=== PATIENT | female | born 1950 | race Caucasian/White ===

== ENCOUNTER 2018-12-27 18:41 | Emergency (ER) | payer MEDICARE, OTHER ==
[~2018-12-27] VITALS: Ht 167.6 cm; Wt 65.8 kg
[2018-12-27 19:15] VITALS: BP 106/85
[2018-12-27] MEDS ORDERED: CITRATE OF MAG296 ML PO (20:03)
[2018-12-27] MEDS ORDERED: COLACE100 MG ORAL (20:03)
[2018-12-27 20:15] VITALS: BP 106/85
--- NOTE | 2018-12-27 21:37 | Emergency Room Report ---
History of Present Illness General Chief Complaint: Abdominal Pain Source: Patient, Family Member Present Illness HPI 68-year-old female presents ED for evaluation. She complaining of pain to left upper quadrant starting today. 5 out of 10, dull, worse with deep breaths. Nonradiating. Denies shortness of breath. States that she had back surgery recently at [facility]. Is currently taking tramadol for pain. Denies nausea or vomiting. Denies fevers or chills. Denies chest pain. No other aggravating relieving factors. Denies any other associated symptoms Allergies: Coded Allergies: PENICILLINS (Verified Allergy, Severe, Anaphylaxis, 12/27/18) SULFA (SULFONAMIDE ANTIBIOTICS) (Verified Allergy, Severe, Anaphylaxis, ) Patient History Past Surgical History: other - back surgery Pertinent Family History: none Social History: Denies: smoking, alcohol use, drug use Last Menstrual Period: na Now: No Immunizations: UTD Reviewed Nursing Documentation: PMH: Agreed; PSxH: Agreed Review of Systems All Other Systems: negative except mentioned in HPI Physical Exam Vital Signs Date Time Temp Pulse Resp B/P (MAP) Pulse Ox O2 Delivery O2 Flow Rate FiO2 12/27/18 18:50 98.2 100 20 99/63 96 Room Air Sp02 EP Interpretation: reviewed, normal General Appearance: no apparent distress, alert, GCS 15, non-toxic Head: normocephalic, atraumatic Eyes: bilateral eye normal inspection, bilateral eye PERRL ENT: hearing grossly normal, normal pharynx, no angioedema, normal voice Neck: full range of motion, supple/symm/no masses Respiratory: chest non-tender, lungs clear, normal breath sounds, speaking full sentences Cardiovascular #1: regular rate, rhythm, no edema Cardiovascular #2: 2+ carotid (R), 2+ carotid (L), 2+ radial (R), 2+ radial (L) , 2+ dorsalis pedis (R), 2+ dorsalis pedis (L) Gastrointestinal: normal bowel sounds, non tender, soft, non-distended, no guarding, no rebound Rectal: deferred Genitourinary: normal inspection, no CVA tenderness Musculoskeletal: back normal, gait/station normal, normal range of motion, non- tender Neurologic: alert, oriented x3, responsive, motor strength/tone normal, sensory intact, speech normal Psychiatric: judgement/insight normal, memory normal, mood/affect normal, no suicidal/homicidal ideation Reflexes: 3+ bicep (R), 3+ bicep (L), 3+ tricep (R), 3+ tricep (L), 3+ knee (R) , 3+ knee (L) Skin: normal color, no rash, warm/dry, well hydrated Lymphatic: no adenopathy Medical Decision Making Diagnostic Impression: Primary Impression: Constipation Qualified Codes: K59.00 - Constipation, unspecified ER Course Hospital Course 68-year-old F presents to ED with LUQ abdominal pain Differential diagnosis includes-appendicitis, cholecystitis, small bowel obstruction, gastritis, Clinical course Patient placed on stretcher. After initial history, exam reveals a middle-aged female in no acute distress. On exam abdomen is soft. No guarding or rebound. There is no rib tenderness. Lungs clear. is worried about patient's heart. I ordered EKG chest x-ray and KUB EKGnormal sinus rhythm no acute ischemic changes interpreted by me Chest x-ray unremarkable KUB - copious stool noted Discussed findings with patient and . Possible that patient's pain medications is causing some fecal impaction. Exam unremarkable. I believe patient can be safely discharged home at this time. We'll prescribe stool softeners. Patient states she will follow-up with her PMD and surgeon I feel this is a highly complex case requiring extensive working including EKG/ Rhythm strip, Xray/CT/US, Blood/urine lab work, repeat exams while in ED, and administration of strong opiates/narcotics for pain control, admission to hospital or close patient follow up. Diagnosis - constipation Stable and discharged to home with Rx Mag citrate, Colace. instructed on high- fiber diet. Followup with PMD. Return to ED if symptoms recur or worsen Chest X-Ray Diagnostic Results Chest X-Ray Diagnostic Results : Chest X-Ray Ordered: Yes # of Views/Limited/Complete: 1 View Indication: Chest Pain EP Interpretation: Yes Interpretation: no consolidation, no effusion, no pneumothorax, no acute cardiopulmonary disease Impression: No acute disease Electronically Signed by: Electronically signed by David Melendez MD Other X-Ray Diagnostic Results Other X-Ray Diagnostic Results : X-Ray ordered: KUB # of Views/Limited Vs Complete: 1 View Indication: Pain EP Interpretation: Yes Interpretation: nonspecific bowel gas, no sbo, other - fecal impaction noted Impression: Other - constipated Electronically Signed by: Electronically signed by David Melendez MD Last Vital Signs Date Time Temp Pulse Resp B/P (MAP) Pulse Ox O2 Delivery O2 Flow Rate FiO2 12/27/18 18:50 98.2 100 20 99/63 96 Room Air Status: improved Disposition: HOME, SELF-CARE Condition: Stable Scripts Magnesium Citrate (CITRATE OF MAGNESIA) 296 Ml Solution 150 ML PO DAILY for 2 Days, #296 ML Prov: David Melendez MD 12/27/18 Docusate Sodium* (COLACE*) 100 Mg Capsule 100 MG ORAL THREE TIMES A DAY, #30 CAP Prov: David Melendez MD 12/27/18 Patient Instructions: Constipation, Adult, [id number] David Melendez MD Dec 27, 2018 21:37
--- NOTE | 2018-12-28 12:22 | Diagnostic Imaging Report ---
Indication: Dyspnea Comparison: None A single view chest radiograph was obtained. Findings: Cardiomediastinal appearance is within normal limits for age. Aorta is mildly ectatic. The lungs are clear. Pulmonary vascularity is appropriate. The diaphragmatic contour is smooth and costophrenic angles are sharp. No pleural effusions are identified. The bones are unremarkable. Impression: No acute findings
--- NOTE | 2018-12-28 12:23 | Diagnostic Imaging Report ---
Indication: Abdominal pain Comparison: None Single view of the abdomen obtained Findings: Bowel gas pattern is nonspecific. No mass, ectopic calcifications, or abnormal gas collections are identified. The bones are osteopenic. Spinal stimulation wires are noted within the sacrum. Lower lumbar fusion hardware demonstrated. There is a scoliosis of the lumbar spine convex to the right. Impression: No acute findings
== END 2018-12-27 20:15 | disposition home or self-care (01) ==
LOC: EMR 19:11
DX: Z88.0 Allergy status to penicillin (principal); R10.12 Left upper quadrant pain; Z88.2 Allergy status to sulfonamides
CPT/HCPCS: 71045; 74018; 93005; 99284

== ENCOUNTER 2019-07-07 12:15 | Emergency (ER) | payer MEDICARE, OTHER ==
[~2019-07-07] VITALS: Ht 165.1 cm; Wt 68.0 kg
[~2019-07-07 12:15] MED LIST: CITRATE OF MAG296 ML PO; COLACE100 MG ORAL
[2019-07-07 12:45] VITALS: BP 116/77
--- NOTE | 2019-07-07 12:45 | NUR ---
ED Nurse Note: pt presents to ED c/o left sided headache x4 days. pt does not speak Turkish, is at bedside to help her translate. she describes the pain as a "burning, tingling" sensastion that she rates a 5/10. pt's also states that pt's face was swollen this AM, she took 50mg benadryl at home with relief of swelling. Pt has multiple small scabs noted on the top of the L side of her head.
[2019-07-07] MEDS ORDERED: CRESTOR10 M1 ORAL (13:16)
[2019-07-07] MEDS ORDERED: LOSARTAN POTASS25 M1 PO (13:17)
--- NOTE | 2019-07-07 13:25 | NUR ---
ED Nurse Note: prednisone was adminsitered to the pt, there was no valtrex in the Pyxis. called pharmacy and they said they would take 5 minutes to prepare and bring it down.
[2019-07-07] MEDS ORDERED: valACYclovir HCL 500mg tab ORAL ONE (13:30)
[2019-07-07] MEDS ORDERED: MEDROL DOSEPAK4 MG ORAL (14:10)
[2019-07-07] MEDS ORDERED: VALACYCLOVIR1000 MG ORAL (14:10)
[2019-07-07 14:20] VITALS: BP 134/81
--- NOTE | 2019-07-08 07:34 | Emergency Room Report ---
History of Present Illness General Chief Complaint: Skin Rash/Abscess Source: Patient, Medical Record Present Illness HPI Patient presents with pain to the left top parietal area of the head patient reports that she had a stinging burning pain for the past several days Today they noticed the rash developing in the region of the scalp also noticing some rash in the left forehead Patient denies any eye pain Denies any visual changes Denies any chest pain or shortness of breath denies any neck pain Patient recalls getting chickenpox as a child but denies any other vaccines Pain is 4 out of 10 burning and stinging sensation Allergies: Coded Allergies: PENICILLINS (Verified Allergy, Severe, Anaphylaxis, 12/27/18) SULFA (SULFONAMIDE ANTIBIOTICS) (Verified Allergy, Severe, Anaphylaxis, ) Patient History Past Medical History: see triage record Last Menstrual Period: N/A Now: No : 2 Para: 2 Reviewed Nursing Documentation: PMH: Agreed; PSxH: Agreed Review of Systems All Other Systems: negative except mentioned in HPI Physical Exam Vital Signs Date Time Temp Pulse Resp B/P (MAP) Pulse Ox O2 Delivery O2 Flow Rate FiO2 07/07/19 12:29 98.2 89 18 116/77 (90) 98 Room Air Sp02 EP Interpretation: reviewed, normal General Appearance: well appearing, no apparent distress Head: other - Region of small erythematous rash with several scab formations erythematous base left frontal parietal region similar early lesions developing forehead on the same side Eyes: bilateral eye PERRL, bilateral eye EOMI ENT: normal pharynx, no angioedema Neck: supple Respiratory: lungs clear, no respiratory distress, no retraction Cardiovascular #1: regular rate, rhythm Gastrointestinal: soft Musculoskeletal: normal inspection Neurologic: alert, oriented x3, responsive Skin: other - As above Lymphatic: no adenopathy Medical Decision Making Diagnostic Impression: Primary Impression: herpes zoster ER Course Patient's exam and findings are consistent with shingles There is consideration of optholomogical spread There is concern given the involvement of the forehead Patient's eye however is not involved at this time there is no discomfort to the region Patient does not have any pain with movement of the eye the nasal areas are spared Patient is initiated on antiviral medication emergently They have a patient services coordinator that they will follow with on Tuesday and will return sooner with any changes or concerns Last Vital Signs Date Time Temp Pulse Resp B/P (MAP) Pulse Ox O2 Delivery O2 Flow Rate FiO2 07/07/19 14:20 97.5 59 134/81 100 Room Air 07/07/19 12:45 18 Status: improved Disposition: HOME, SELF-CARE Condition: Improved Scripts Methylprednisolone (Methylprednisolone*) 4MG Dspk 4 MG ORAL DIRECTED for 6 Days, #21 EA 0 Refills Day 1: Two tablets before breakfast, one after lunch, one after dinner, and two at bedtime. If started late in the day, take all six tablets at once or divide into two or three doses, unless otherwise directed by prescriber. Day 2: One tablet before breakfast, one after lunch, one after dinner, and two at bedtime Day 3: One tablet before breakfast, one after lunch, one after dinner, and one at bedtime Day 4: One tablet before breakfast, one after lunch, and one at bedtime Day 5: One tablet before breakfast and one at bedtime Day 6: One tablet before breakfast Prov: Paradise Duffy DO 07/07/19 Methylprednisolone (Methylprednisolone*) 4MG Dspk 4 MG ORAL DIRECTED for 6 Days, #21 EA 0 Refills Day 1: Two tablets before breakfast, one after lunch, one after dinner, and two at bedtime. If started late in the day, take all six tablets at once or divide into two or three doses, unless otherwise directed by prescriber. Day 2: One tablet before breakfast, one after lunch, one after dinner, and two at bedtime Day 3: One tablet before breakfast, one after lunch, one after dinner, and one at bedtime Day 4: One tablet before breakfast, one after lunch, and one at bedtime Day 5: One tablet before breakfast and one at bedtime Day 6: One tablet before breakfast Prov: Paradise Duffy DO 07/07/19 Valacyclovir Hcl (VALACYCLOVIR) 1,000 Mg Tablet 1000 MG ORAL Q8HR for 7 Days, TAB Prov: Paradise Duffy DO 07/07/19 Referrals: NON PHYSICIAN (PCP) Patient Instructions: Shingles, [id number] Additional Instructions: Patient is provided with the discharge instructions notified to follow up with primary doctor in the next 2-3 days otherwise return to the er with any worsening symptoms. Please note that this report is being documented using [employer] technology. This can lead to erroneous entry secondary to incorrect interpretation by the dictating instrument. Paradise Duffy DO Jul 08, 2019 07:33
== END 2019-07-07 14:20 | disposition home or self-care (01) ==
LOC: EMR 13:26
DX: B02.9 Zoster without complications (principal); Z88.0 Allergy status to penicillin; Z88.2 Allergy status to sulfonamides
CPT/HCPCS: 99283; J7512

== ENCOUNTER 2020-07-20 13:28 | Emergency (ER) | payer MEDICARE, OTHER ==
[~2020-07-20] VITALS: Ht 162.6 cm; Wt 68.0 kg
[~2020-07-20 13:28] MED LIST changes: +CRESTOR10 M1 ORAL; +LOSARTAN POTASS25 M1 PO; +MEDROL DOSEPAK4 MG ORAL; +VALACYCLOVIR1000 MG ORAL
[2020-07-20 13:32] VITALS: BP 109/63
--- NOTE | 2020-07-20 13:42 | NUR ---
ED Nurse Note: Patient from home and walked in due to left upper amr redness and mild swelling which starte dfater taking vaccination from shingles last tuesday. Pt states her LUE was more swollen and painful yesteday. Pt took ibuprofen prior ED arrival. AAO x4 and ambulatory.
[2020-07-20] MEDS ORDERED: Ketorolac 30mg Inj IM ONE (14:15)
--- NOTE | 2020-07-20 14:21 | Emergency Room Report ---
History of Present Illness General Chief Complaint: Skin Rash/Abscess Source: Patient Present Illness HPI 70-year-old female with no known signal past medical history here complaining of left arm redness after receiving shingles vaccine 2 days ago. Mild erythema warmness to touch noted left anterior arm. Patient has full range of motion of the arm denies any pain radiation tingling numbness. Denies any fever and chills, anaphylaxis, shortness of breath, chest pain. Patient is a Maltese- speaking only and I have Savi, nurse translate our conversation. Patient is neurovascularly intact. No erythema multiforme noted. Has not taken medication for symptoms. Speaking full sentences and in no apparent distress. Allergies: Coded Allergies: PENICILLINS (Verified Allergy, Severe, Anaphylaxis, 12/27/18) SULFA (SULFONAMIDE ANTIBIOTICS) (Verified Allergy, Severe, Anaphylaxis, ) COVID-19 Screening Contact w/high risk pt: No Experienced COVID-19 symptoms?: No COVID-19 Testing performed CAR TESTER: No Patient History Past Medical History: see triage record Past Surgical History: none Pertinent Family History: none Reviewed Nursing Documentation: PMH: Agreed; PSxH: Agreed Nursing Documentation-PMH Past Medical History: No History, Except For Hx Hypertension: Yes Review of Systems All Other Systems: negative except mentioned in HPI Physical Exam Vital Signs Date Time Temp Pulse Resp B/P (MAP) Pulse Ox O2 Delivery O2 Flow Rate FiO2 07/20/20 13:32 99.0 101 16 109/63 96 Room Air Sp02 EP Interpretation: reviewed, normal General Appearance: no apparent distress, alert, GCS 15, non-toxic Head: normocephalic, atraumatic Eyes: bilateral eye normal inspection, bilateral eye PERRL ENT: hearing grossly normal, normal pharynx, no angioedema, normal voice Neck: full range of motion, supple/symm/no masses Respiratory: lungs clear, no wheezing Cardiovascular #1: regular rate, rhythm, no edema Cardiovascular #2: 2+ carotid (R), 2+ carotid (L), 2+ radial (R), 2+ radial (L), 2+ dorsalis pedis (R), 2+ dorsalis pedis (L) Gastrointestinal: soft Musculoskeletal: back normal Neurologic: alert, motor strength/tone normal, oriented x3, sensory intact, responsive, speech normal Psychiatric: judgement/insight normal, memory normal, mood/affect normal, no suicidal/homicidal ideation Skin: rash - Slightly cellulitic rash anterior left arm Lymphatic: no adenopathy Medical Decision Making PA Attestation All my diagnosis and treatment plans were reviewed ad discussed with my supervising physician Dr. Melendez Diagnostic Impression: Primary Impression: Allergic reaction caused by a drug Additional Impression: Cellulitis ER Course 70-year-old female with no known signal past medical history here complaining of left arm redness after receiving shingles vaccine 2 days ago. Mild erythema warmness to touch noted left anterior arm. Patient has full range of motion of the arm denies any pain radiation tingling numbness. Denies any fever and chills, anaphylaxis, shortness of breath, chest pain. Patient is a Maltese- speaking only and I have Savi, nurse translate our conversation. Patient is neurovascularly intact. No erythema multiforme noted. Has not taken medication for symptoms. Speaking full sentences and in no apparent distress. Ddx considered but are not limited to : Cellulitis, allergic urticaria, superficial infection, abscess Vital signs: are WNL, pt. is afebrile H&PE are most consistent with: Allergic reaction caused by vaccination, cellulitis of arm ORDERS: Clindamycin, prednisone, Benadryl, asked patient to stop clindamycin in 2 days if not feeling better at this time warmness can be secondary to allergic reaction. Also did not give any Benadryl in house as patient reported that she walked to the emergency department and given Benadryl can cause drowsiness. ED INTERVENTIONS: Dexamethasone, Toradol DISCHARGE: At this time pt. is stable for d/c to home. Will provide printed patient care instructions, and any necessary prescriptions. Care plan and follow up instructions have been discussed with the patient prior to discharge. Patient take medication as directed, follow primary care provider, if worsening symptoms return to the emergency room. I advised patient return to the emergency room immediately if worsening symptom and more swelling is some people have delayed hypersensitivity and reactivity to allergens Last Vital Signs Date Time Temp Pulse Resp B/P (MAP) Pulse Ox O2 Delivery O2 Flow Rate FiO2 07/20/20 13:32 99.0 101 16 109/63 (78) 96 Room Air Disposition: HOME, SELF-CARE Condition: Stable Scripts Clindamycin Hcl* (CLINDAMYCIN HCL*) 150 Mg Capsule 300 MG ORAL FOUR TIMES A DAY for 7 Days, #28 CAP Prov: Carter Viera 07/20/20 Ibuprofen* (MOTRIN*) 600 Mg Tablet 600 MG ORAL Q6H PRN for For Pain, #30 TAB 0 Refills Prov: Carter Viera 07/20/20 Diphenhydramine HCl (Benadryl) 25 Mg Capsule 25 MG PO BID, #14 CAP Prov: Carter Viera 07/20/20 Prednisone* (PREDNISONE*) 20 Mg Tablet 40 MG ORAL DAILY for 5 Days, #10 TAB Prov: Carter Viera 07/20/20 Patient Instructions: Allergies, [id number], Cellulitis, [id number] Additional Instructions: Take medication as directed, follow primary care provider, if worsening symptom, anaphylaxis, difficulty breathing return to the emergency room Carter Viera Jul 20, 2020 14:21
[2020-07-20] MEDS ORDERED: BENADRYL25 M3 PO (14:24)
[2020-07-20] MEDS ORDERED: PREDNISONE20 MG ORAL (14:24)
[2020-07-20] MEDS ORDERED: IBUPROFEN600 M1 ORAL (14:24)
[2020-07-20] MEDS ORDERED: CLINDAMYCIN HC150 MG ORAL (14:24)
[2020-07-20 14:33] VITALS: BP 115/70
--- NOTE | 2020-07-20 14:33 | NUR ---
ER DISCHARGE NOTE: Patient is cleared to be discharged per PA, pt is aox4, on room air, with stable vital signs. pt was given dc and prescription instructions, pt was able to verbalize understanding, pt id band removed. pt is able to ambulate with steady gait. pt took all belongings.
== END 2020-07-20 14:33 | disposition home or self-care (01) ==
LOC: EMR 13:58
DX: T78.49XA Other allergy, initial encounter (principal); T50.Z95A Adverse effect of other vaccines and biological substances, initial encounter; Y92.9 Unspecified place or not applicable; X58.XXXA Exposure to other specified factors, initial encounter; I10 Essential (primary) hypertension; L03.114 Cellulitis of left upper limb
CPT/HCPCS: 96372; 99283; J1100; J1885